=== PATIENT | female | born 1945 | race Asian ===

== ENCOUNTER 2024-08-20 06:26 | Emergency (ER) | payer MEDICARE, MEDICAID ==
[~2024-08-20] VITALS: Ht 165.1 cm; Wt 70.0 kg
[2024-08-20 06:30] VITALS: O2SAT 100
[2024-08-20] MEDS ORDERED: MECLIZINE 25MG TABLET PO ONE (07:15)
[2024-08-20 08:26] LABS: CHLORIDE 107 mEq/L (98-107); POTASSIUM 3.3 mEq/L (3.5-5.1); SODIUM 141 mEq/L (136-145)
[2024-08-20 08:27] LABS: CARBON DIOXIDE 27 mEq/L (21-32); HEMATOCRIT 41.1 % (36.0-48.0); HEMOGLOBIN 14.1 g/dL (12.0-16.0); MEAN CORPUSCULAR HEMOGLOBIN 32.9 pg (28.0-32.0); MEAN CORPUSCULAR HGB CONC 34.4 g/dL (31.0-37.0); MEAN CORPUSCULAR VOLUME 95.9 fL (81.0-99.0); PLATELET 265 x1000/uL (130-400); RED BLOOD CELL COUNT 4.29 mill/uL (4.2-5.4); RED CELL DISTRIBUTION WIDTH 12.6 % (11.6-14.6); WHITE BLOOD COUNT 7.2 x1000/uL (4.5-11.0)
[2024-08-20 08:28] LABS: CALCIUM 9.1 mg/dL (8.7-10.4)
[2024-08-20] MEDS: MECLIZINE 25MG TABLET PO SCH (08:31)
[2024-08-20 08:32] LABS: CREATININE 0.6 mg/dL (0.6-1.0); GLUCOSE 95 mg/dL (70-105)
[2024-08-20 08:33] LABS: UREA NITROGEN BLOOD 13 mg/dL (9-23)
[2024-08-20] MEDS ORDERED: MECL-299 MT (08:46)
[2024-08-20] MEDS: POTASSIUM CHLORIDE 20MEQ TABLET SR PO NR (09:07)
[2024-08-20 09:15] VITALS: BP 139/74; PULSE 79; RESP 23; TEMP 37.1; O2SAT 99
== END 2024-08-20 09:35 | disposition home or self-care (01) ==
LOC: ER 06:26
DX: R42 Dizziness and giddiness (principal); J32.9 Chronic sinusitis, unspecified
CPT/HCPCS: 99284; 70450; 80048; 85027; 36415; J8597